=== PATIENT | female | born 1950 ===

== ENCOUNTER 2018-08-13 08:53 | Inpatient (IN) | payer OTHER ==
[~2018-08-13] VITALS: Ht 165.1 cm; Wt 74.4 kg
[2018-08-13] MEDS ORDERED: SYNTHROID50 MCG PO (09:08)
[2018-08-13] MEDS ORDERED: SINGULAIR10 MG PO (09:09)
[2018-08-13] MEDS ORDERED: FUROSEMIDE20 MG PO (09:09)
[2018-08-16] MEDS ORDERED: CIPRO500 MG PO (17:31)
[2018-08-16] MEDS ORDERED: FLAGYL500MG PO (17:31)
[2018-08-16] MEDS ORDERED: PROTONIX20 MG PO (17:32)
== END 2018-08-16 17:41 | disposition home or self-care (01) | DRG 439 ==
LOC: ER 08:53 → MEDI 18:56
PROVIDERS: ADMIT Internal Medicine
PROC: BW40ZZZ Ultrasonography of Abdomen (ICD-10-PCS; principal; 2018-08-13)
PROC: BF37ZZZ Magnetic Resonance Imaging (MRI) of Pancreas (ICD-10-PCS; 2018-08-13)
DX: K85.10 Biliary acute pancreatitis without necrosis or infection (principal); K80.18 Calculus of gallbladder with other cholecystitis without obstruction; E03.8 Other specified hypothyroidism